=== PATIENT | female | born 1960 | race American Indian/Alaskan Native ===

== ENCOUNTER 2016-02-27 06:29 | Day surgery (SDC) | payer MEDICARE, OTHER ==
[2016-02-20 11:10] LABS: Basophils % (Auto) 0.8 % (0.0-1.8); Eosinophils % (Auto) 4.2 % (0.0-4.3); Hemoglobin 11.9 gm/dl (10.1-14.3); Mean Corpuscular HGB Conc 33 % (30-34); Mean Corpuscular Hemoglobin 29 pg (28-32); Mean Corpuscular Volume 87 fl (79-97); Platelet Count 248 K/mm3 (140-440); Red Blood Count 4.12 M/mm3 (3.65-5.03); Red Cell Distribution Width 14.4 % (13.2-15.2); White Blood Count 8.6 K/mm3 (4.5-11.0)
--- NOTE | 2016-02-20 11:24 | Anesthesia Consultation ---
Anesthesia Consult and Med Hx Date of service: 02/20/16 - Airway Anesthetic Teeth Evaluation: Good (small mouth opening; limited due to pain - patient has a cavity right lower molar) ROM Head & Neck: Adequate Mental/Hyoid Distance: Adequate Mallampati Class: Class IV Intubation Access Assessment: Possibly Difficult - Pulmonary Exam CTA: Yes - Cardiac Exam Cardiac Exam: RRR - Pre-Operative Health Status ASA Pre-Surgery Classification: ASA3 Proposed Anesthetic Plan: General Nerve Block: IS - Pulmonary Hx Smoking: No (SMOKES MARIJUANA ONLY) Hx Sleep Apnea: Yes (DX SLEEP APNEA WITH CPAP USE.) - Cardiovascular System Hx Hypertension: Yes (2004) - Central Nervous System Hx Back Pain: Yes Hx Psychiatric Problems: Yes (Depression) - Gastrointestinal Hx Gastroesophageal Reflux Disease: Yes - Endocrine Hx Non-Insulin Dependent Diabetes: Yes - Hematic Hx Anemia: Yes (NO RECENT) Hx Sickle Cell Disease: No (SC TRAIT ONLY) - Other Systems Hx Alcohol Use: Yes (3 DRINKS PER WEEK) Hx Substance Use: Yes (MARIJANA 2 X WEEK) Hx Cancer: No
[2016-02-20 11:25] LABS: Alanine Aminotransferase 32 units/L (7-56); Albumin 4.2 g/dL (3.9-5); Albumin/Globulin Ratio 1.5 %; Alkaline Phosphatase 105 units/L (35-129); BUN/Creatinine Ratio 15.71; Bilirubin,Total 0.2 mg/dL (0.1-1.2); Blood Urea Nitrogen 11 mg/dL (7-17); Calcium 9.3 mg/dL (8.4-10.2); Carbon Dioxide 28 mmol/L (22-30); Chloride 102.1 mmol/L (98-107); Glucose 168 mg/dL (65-100); Potassium 3.8 mmol/L (3.6-5.0); Sodium 142 mmol/L (137-145)
[2016-02-20 11:26] LABS: Anion Gap 16 mmol/L
--- NOTE | 2016-02-26 19:41 | History and Physical Report ---
History of Present Illness Date of examination: 02/25/16 Date of admission: 02/27/16 Chief complaint: Pain and limitation of movement right shoulder, difficulty reaching duration several months. Treated symptomatically, not responding to nonoperative management. MRI scan showing rotator cuff tear, being admitted for rotator cuff repair. Past History Past Medical History: GERD, hypertension, other (Chronic pain, lumbar radiculopathy, diabetic neuropathy.) Medications and Allergies Allergies Allergy/AdvReac Type Severity Reaction Status Date / Time Penicillins Allergy Rash Verified 10/03/15 13:58 Sulfa (Sulfonamide Allergy Rash Verified 10/03/15 13:58 Antibiotics) Home Medications Medication Instructions Recorded Confirmed Last Taken Type Aspirin [Aspirin BABY CHEW TAB] 81 mg PO QDAY 10/04/15 02/20/16 01/21/16 History Cyclobenzaprine [Flexeril 10 MG 10 mg PO BID 10/04/15 02/20/16 10/02/15 History TAB] Gabapentin [Neurontin] 300 mg PO BID 10/04/15 02/20/16 10/02/15 History Icosapent Ethyl [Vascepa] 1 gm PO BID 10/04/15 02/20/16 10/02/15 History Linaclotide [Linzess] 145 mg PO DAILY 10/04/15 02/20/16 10/02/15 History Losartan [Cozaar] 150 mg PO QDAY 10/04/15 02/20/16 10/03/15 History Omeprazole 40 mg PO DAILY 10/04/15 02/20/16 10/02/15 History Phentermine HCl [Adipex-P] 37.5 mg PO QAM 10/04/15 02/20/16 02/11/16 History metFORMIN [Glucophage] 1,000 mg PO BID 10/04/15 02/20/16 10/03/15 History Triamcinolone/Lidocaine/Priloc 1 dose TRANSDERMA PRN PRN 02/20/16 02/20/16 Unknown History [Dermacinrx Cinlone-I Cpi Kit] Active Meds: Active Medications Famotidine (Pepcid) 20 mg PO PREOP NR Stop: 02/27/16 23:01 Sodium Chloride (Nacl 0.9% 1000 Ml) 1,000 mls @ 75 mls/hr IV DIRECT NAYELI Midazolam HCl (Versed) 2 mg IV PREOP NR Stop: 02/27/16 23:01 Review of Systems All systems: negative Exam - Constitutional Vitals: Temp Pulse Resp BP Pulse Ox 99.1 F 78 18 160/100 02/20/16 11:00 02/20/16 11:00 02/20/16 11:00 02/20/16 11:00 General appearance: Present: no acute distress, well-nourished - EENT Eyes: Present: PERRL ENT: hearing intact, clear oral mucosa - Neck Neck: Present: supple, normal ROM - Respiratory Respiratory effort: normal Respiratory: bilateral: CTA - Cardiovascular Heart Sounds: Present: S1 & S2. Absent: rub, click - Extremities Extremities: pulses symmetrical, No edema, abnormal (Right shoulder with painful abduction, weakness with abduction and lateral liftoff. Abduction to 80 -90 with pain. Rotation 60 each, active abduction 120. Tenderness across supraspinatus right side. Scapula palpated symmetrical, no asymmetry to biceps , deltoid. Apprehension sign is negative.) Peripheral Pulses: within normal limits - Abdominal General gastrointestinal: Present: soft, non-tender, non-distended, normal bowel sounds Female genitourinary: Present: normal - Integumentary Integumentary: Present: clear, warm, dry - Musculoskeletal Musculoskeletal: gait normal, strength equal bilaterally - Psychiatric Psychiatric: appropriate mood/affect, intact judgment & insight - Neurologic Neurologic: CNII-XII intact, moves all extremities Results - Labs CBC & Chem 7: 02/20/16 10:50 02/20/16 10:50 Assessment and Plan - Patient Problems (1) Right rotator cuff tear Status: Chronic Qualifiers: Rotator cuff tear extent: complete Qualified Code(s): M75.121 - Complete rotator cuff tear or rupture of right shoulder, not specified as traumatic Plan to address problem: Exploration, repair of rotator cuff. Procedure, complications and outcomes discussed with.
[~2016-02-27 06:29] MED LIST: NACL 0.9% 1000 ML 1,000 ML IV SCH; PEPCID PO NR; VANCOMYCIN/NS 1 GM/250 ML 250 ML IV NR; VERSED IV NR
[2016-02-27] MEDS ORDERED: ZEMURON IV ONE (07:22)
[2016-02-27] MEDS ORDERED: SUBLIMAZE ONE (07:22)
[2016-02-27] MEDS ORDERED: DIPRIVAN 10 MG/ML IV ONE (07:22)
[2016-02-27] MEDS ORDERED: XYLOCAINE MPF 2% ONE (07:23)
[2016-02-27] MEDS ORDERED: NEURONTIN ONE (07:54)
[2016-02-27] MEDS ORDERED: XYLOCAINE 1% 20 mL ONE (07:54)
[2016-02-27] MEDS ORDERED: MARCAINE-EPI 0.5%-1:200,000 INFILTRATI ONE (07:54)
[2016-02-27] MEDS ORDERED: DECADRON ONE ×2 (07:54→09:05)
--- NOTE | 2016-02-27 08:08 | Anesthesia Day of Surgery ---
Anesthesia Day of Surgery - Day of Surgery Patient Examined: Yes Patient H&P Reviewed: Yes Patient is NPO: Yes
[2016-02-27] MEDS ORDERED: ZOFRAN ONE (09:05)
[2016-02-27] MEDS ORDERED: LOPRESSOR IV ONE (09:07)
[2016-02-27] MEDS ORDERED: NEOSPORIN GU IR ONE (09:17)
[2016-02-27] MEDS ORDERED: NACL 0.9% IR ONE (09:17)
[2016-02-27] MEDS ORDERED: BLOXIVERZ ONE (09:20)
[2016-02-27] MEDS ORDERED: ROBINUL ONE ×2 (09:20)
[2016-02-27] MEDS ORDERED: NACL 0.9% 1000 ML 1,000 ML ONE (09:24)
--- NOTE | 2016-02-27 09:53 | Discharge Summary ---
Providers - Providers Date of discharge: 02/27/16 Attending physician: DIANE YOUNG Primary care physician: YURIDIA BALES Hospitalization Reason for admission: Rotator cull tear right Condition: Stable Procedures: Repair of rotator cuff right shoulder Hospital course: No complications Disposition: DISCHARGED TO HOME OR SELFCARE - Discharge Diagnoses (1) Right rotator cuff tear Status: Chronic Qualifiers: Rotator cuff tear extent: complete Qualified Code(s): M75.121 - Complete rotator cuff tear or rupture of right shoulder, not specified as traumatic Core Measure Documentation - Palliative Care Palliative Care/ Comfort Measures: Not Applicable - Core Measures Any of the following diagnoses?: none Exam - Constitutional Vitals: Temp Pulse Resp BP Pulse Ox 97.7 F 117 H 12 158/84 100 02/27/16 06:30 02/27/16 08:30 02/27/16 08:30 02/27/16 08:30 02/27/16 08:30 Plan Activity: no driving until cleared by PCP Diet: regular Wound: per your surgeon's advice Durable Medical Equipment Needed Upon Discharge: other (Shoulder immobiliser) Follow up with: YURIDIA BALES MD [Primary Care Provider] - 7 Days DIANE YOUNG MD [Staff Physician] - 7 Days
--- NOTE | 2016-02-27 09:54 | Procedure Note ---
Date of procedure: 02/27/16 Pre-op diagnosis: Rottator cuff tear right shoulder Post-op diagnosis: same Anesthesia: GETA, regional Surgeon: DIANE YOUNG Estimated blood loss: minimal Pathology: none Condition: stable Disposition: PACU
[2016-02-27 12:32] VITALS: BP 143/84
--- NOTE | 2016-02-27 13:10 | Operative Report ---
PREOPERATIVE DIAGNOSIS: Rotator cuff tear, right shoulder. POSTOPERATIVE DIAGNOSIS: Rotator cuff tear, right shoulder. OPERATIVE PROCEDURE: Open rotator cuff repair, right shoulder with acromioplasty. SURGEON: Sean Quigley MD MACHINE PULLER OVER: Tiana Renteria CSA. ANESTHESIA: Regional block with general sedation. BLOOD LOSS: Minimal. DESCRIPTION OF PROCEDURE: The patient was taken to surgery suite, satisfactory analgesia obtained with regional block supplemented with general sedation. She was positioned in the beach chair position. Right shoulder prepped in the standard fashion using ChloraPrep. After confirming the correct patient, surgical procedure, and site, an Incision was made over the lateral aspect of the superior shoulder starting at the coracoid process extending into the lateral tip of the acromion. Incision was deepened. The deltoid was split. The lateral and anterior raphae and the subacromial bursa was identified and this was partially excised. Rotator cuff tear measuring approximately 1 cm was noticed over the greater tuberosity with the granulation tissue, which was excised. The lateral osteophyte of the acromion was visualized, which appears severely impinging into the rotator cuff with a type III configuration. Acromioplasty was carried out by excising the lateral inferior tip of the acromion. Further debridement was carried out using a dental bur. Wound was irrigated to remove any debris. Using 0 Ethibond sutures, [id number] repair of the rotator cuff tendon was carried out. A Mitek anchor was then positioned at the greater tuberosity at the osteochondral margin and the lateral and the supraspinatus tendon/rotator cuff was reattached back into the footprint in the anatomical position. Repair appeared satisfactory. Following irrigation, the wound was closed in standard fashion using 0 Vicryl, 2-0 Vicryl, and lydia. At the completion of procedure, counts were accurate. Total blood loss minimal. The patient will be discharged when discharge criteria are met. HOMEGOING INSTRUCTIONS: Elevation, localized packs, continue with the mobilization. Follow up in 7-10 days. JOB# [id number] ARCHANAN/EM
--- NOTE | 2016-02-27 17:31 | Post Anesthesia Evaluation ---
- Post Anesthesia Evaluation Patient Participated: Yes Airway Patent: Yes Stable Respiratory Function: Yes Nausea/Vomiting: No Temp > 96.8F: Yes Pain Manageable: Yes Adequeate Hydration: Yes Anesthesia Complications: No Block Receding Appropriately: Not Applicable Patient on Ventilator: No
== END 2016-02-27 12:20 | disposition home or self-care (01) ==
LOC: OR 06:29
PROVIDERS: ATTEND Orthopaedic Surgery
DX: S46.011A Strain of muscle(s) and tendon(s) of the rotator cuff of right shoulder, initial encounter (principal); I10 Essential (primary) hypertension; E78.00 Pure hypercholesterolemia, unspecified; F12.90 Cannabis use, unspecified, uncomplicated; M19.90 Unspecified osteoarthritis, unspecified site; G47.33 Obstructive sleep apnea (adult) (pediatric); D64.9 Anemia, unspecified; E11.9 Type 2 diabetes mellitus without complications; K21.9 Gastro-esophageal reflux disease without esophagitis; F32.9 Major depressive disorder, single episode, unspecified; Z72.89 Other problems related to lifestyle; Z96.653 Presence of artificial knee joint, bilateral; Z98.890 Other specified postprocedural states; X58.XXXA Exposure to other specified factors, initial encounter; Y93.9 Activity, unspecified; Y92.9 Unspecified place or not applicable; Y99.9 Unspecified external cause status
CPT/HCPCS: 23130; 23412; 36415; 80053; 82962; 85025; C1713; J1100; J2250; J2405; J2704; J2710; J3010; J7030; L1830

== ENCOUNTER 2016-09-25 16:10 | Emergency (ER) | payer OTHER, MEDICARE ==
[2016-09-25] MEDS ORDERED: MOTRIN PO ONE (19:41)
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
[2016-09-25 20:40] VITALS: BP 116/77
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
== END 2016-09-25 20:39 | disposition home or self-care (01) ==
LOC: ED 16:10
DX: S39.012A Strain of muscle, fascia and tendon of lower back, initial encounter (principal); Z88.0 Allergy status to penicillin; Z88.2 Allergy status to sulfonamides; D57.3 Sickle-cell trait; I10 Essential (primary) hypertension; E11.9 Type 2 diabetes mellitus without complications; M19.90 Unspecified osteoarthritis, unspecified site; Z79.82 Long term (current) use of aspirin; V49.49XA Driver injured in collision with other motor vehicles in traffic accident, initial encounter; Y92.488 Other paved roadways as the place of occurrence of the external cause; Y93.89 Activity, other specified; Y99.8 Other external cause status
CPT/HCPCS: 72100; 99283